=== PATIENT | male | born 1950 | race Caucasian/White ===

== ENCOUNTER 2017-01-27 12:15 | Emergency (ER) | payer OTHER, MEDICARE ==
[~2017-01-27] VITALS: Ht 185.4 cm; Wt 100.7 kg
[~2017-01-27 12:15] MED LIST: ASPI-515 PO; ATOR10TA PO; CITA20TA9 PO; CLOP75TA52 PO; EZET10TA18 PO; FERR325T18 PO; FOLI0.8T2 PO; FURO-92 PO; FURO-93 PO; METH-356 PO; METH40TA3; METO25TA2 PO; NIAC500T4 PO; NITR0.4T28 SL; OXYC-307; OXYC20TA2 PO; OXYC20TA42 PO; POTA20TA6 PO; TEMA30CA PO
[2017-01-27 12:23] VITALS: BP 136/74
[2017-01-27] MEDS ORDERED: METH-356 PO (12:43)
== END 2017-01-27 13:12 | disposition home or self-care (01) ==
LOC: ED 13:00
DX: G89.29 Other chronic pain (principal); M54.9 Dorsalgia, unspecified; F11.23 Opioid dependence with withdrawal; E78.00 Pure hypercholesterolemia, unspecified; F32.9 Major depressive disorder, single episode, unspecified; I10 Essential (primary) hypertension; I25.110 Atherosclerotic heart disease of native coronary artery with unstable angina pectoris
CPT/HCPCS: 99281

== ENCOUNTER → 2017-08-23 | Outpatient (CLI) | payer OTHER, MEDICARE | LOC: CVU 08:01 | PROVIDERS: ATTEND Internal Medicine Cardiovascular Disease | DX: I87.2 Venous insufficiency (chronic) (peripheral) (principal); R60.0 Localized edema | CPT/HCPCS: 93970 ==

== ENCOUNTER 2017-12-03 07:51 | Emergency (ER) | payer MEDICARE, OTHER ==
[~2017-12-03] VITALS: Ht 185.4 cm; Wt 99.4 kg
[2017-12-03 09:43] LABS: BASOPHILS % (AUTO) 1 % (0-1); EOSINOPHILS # (AUTO) 0.17 x10^3/uL (0-0.4); EOSINOPHILS % (AUTO) 2 % (1-7); LYMPHOCYTES % (AUTO) 21 % (22-44); MD NO; MEAN CORPUSCULAR HEMOGLOBIN 31.4 pg (27.5-34.5); MEAN CORPUSCULAR HGB CONC 34.5 g/dL (33.2-36.2); MEAN CORPUSCULAR VOLUME 91.2 fL (81-97); MONOCYTES # (AUTO) 0.64 x10^3/uL (0.2-0.8); MONOCYTES % (AUTO) 7 % (2-9); NEUTROPHILS # (AUTO) 6.21 x10^3/uL (1.8-6.8); NEUTROPHILS % (AUTO) 69 % (42-75); PLATELET COUNT 242 x10^3/uL (130-400); RED BLOOD COUNT 4.64 x10^6/uL (4.38-5.82); RED CELL DISTRIBUTION WIDTH 13.7 % (9.4-14.8)
[2017-12-03 09:49] VITALS: BP 122/97
[2017-12-03 09:49] LABS: ALANINE AMINOTRANSFERASE 27 U/L (12-78); ALBUMIN 3.4 g/dL (3.4-5.0); ANION GAP 7 mmol/L (5-15); CALCIUM 8.7 mg/dL (8.5-10.1); CHLORIDE 106 mmol/L (98-107)
[2017-12-03 09:53] LABS: ALKALINE PHOSPHATASE 85 U/L (45-117); BILIRUBIN,TOTAL 0.5 mg/dL (0.2-1.0); TOTAL PROTEIN 7.6 g/dL (6.4-8.2); TROPONIN I < 0.015 ng/mL (0.000-0.045)
== END 2017-12-03 10:46 | disposition home or self-care (01) ==
LOC: ED 10:35
DX: R42 Dizziness and giddiness (principal); I10 Essential (primary) hypertension; E78.00 Pure hypercholesterolemia, unspecified; I25.10 Atherosclerotic heart disease of native coronary artery without angina pectoris; E78.5 Hyperlipidemia, unspecified; I25.2 Old myocardial infarction
CPT/HCPCS: 36415; 80053; 84439; 84443; 84484; 85025; 93005; 99285

== ENCOUNTER → 2018-05-29 | Outpatient (CLI) | payer OTHER, MEDICARE ==
[~2018-05-29] MED LIST changes: -METH-356 PO; +METH10TA2 PO
== END | disposition home or self-care (01) ==
LOC: RAD 14:05
PROVIDERS: ATTEND Family Medicine
DX: R05 Cough (principal)
CPT/HCPCS: 71046

== ENCOUNTER → 2018-10-08 | Outpatient (CLI) | payer OTHER, MEDICARE | END | disposition home or self-care (01) | LOC: RAD 10:34 | PROVIDERS: ATTEND Family Medicine | DX: J84.9 Interstitial pulmonary disease, unspecified (principal); J90 Pleural effusion, not elsewhere classified | CPT/HCPCS: 71046 ==

== ENCOUNTER 2018-11-19 08:20 | Outpatient (CLI) | payer OTHER, MEDICARE | END 2018-11-19 23:59 | disposition home or self-care (01) | LOC: RAD 08:20 | PROVIDERS: ATTEND Family Medicine | DX: R91.8 Other nonspecific abnormal finding of lung field (principal); R05 Cough | CPT/HCPCS: 71046 ==